=== PATIENT | female | born 1945 | race Caucasian/White ===

== ENCOUNTER → 2018-04-14 | Outpatient (CLI) | payer MEDICARE, OTHER ==
[2014-09-26 13:30] VITALS: BP 130/91
--- NOTE | 2018-04-14 12:45 | RAD ---
EXAM: Dual energy x-ray absorptiometry (DEXA) 04/14/2018. HISTORY: Postmenopausal, history of chemotherapy and uterine carcinoma. COMPARISON: DEXA scan 03/05/2015 TECHNIQUE: Dual energy x-ray absorptiometry of the lumbar spine L1-L4 and right hip was performed. Calculation of bone mineral density based on standard deviations above or below the expected young adult normal value (T-score) was completed. FINDINGS: The average bone mineral density associated with L1-L4 is 1.216 g/cm^2, corresponding with a T-score of 0.3. The average bone mineral density associated with the right femoral neck is 0.996 g/cm^2, corresponding with a T-score of -0.3. The average bone mineral density associated with the total right proximal femuris 0.959 g/cm^2, corresponding with a T-score of -0.4. Refer to the worksheets for full detail. IMPRESSION: 1. Bone mineral density within normal limits. Note: Definitions established by the [employer]: 1. Normal: T-score is -1.0 or above the expected mean for a young adult. 2. Osteopenia: T-score is between -1.0 and -2.5. 3. Osteoporosis: T-score is -2.5 or below. Electronically signed by: Luis Zarco MD (04/14/2018 12:40 PM) [facility]
== END | disposition home or self-care (01) ==
LOC: DXRAD 10:21
PROVIDERS: ATTEND Specialist
DX: Z13.820 Encounter for screening for osteoporosis (principal); Z78.0 Asymptomatic menopausal state; Z85.42 Personal history of malignant neoplasm of other parts of uterus; Z92.21 Personal history of antineoplastic chemotherapy
CPT/HCPCS: 77080